=== PATIENT | female | born 1945 | race Caucasian/White ===

== ENCOUNTER 2018-04-14 12:43 | Emergency (ER) | payer OTHER ==
[~2018-04-14] VITALS: Ht 160 cm; Wt 54.0 kg
[2018-04-14 13:13] LABS: ABSOLUTE BASOPHIL COUNT 0 /CUMM (0.0-0.2); ABSOLUTE EOSINOPHIL COUNT 0 /CUMM (0.0-0.7); ABSOLUTE GRANULOCYTE CT 6.5 /CUMM (1.4-6.5); ABSOLUTE LYMPH COUNT 1.1 /CUMM (1.2-3.4); ABSOLUTE MONOCYTE COUNT 1.1 /CUMM (0.10-0.60); BASOPHIL % 0.3 % (0.0-2.0); EOSINOPHIL % 0.2 % (0-5); GRANULOCYTE % 74.3 % (42.2-75.2); HEMATOCRIT 38.9 % (37-47); MEAN CORPUSCULAR HGB 31.7 PG (27.0-31.0); MEAN CORPUSCULAR VOLUME 93.4 FL (81.0-99.0); MEAN PLATELET VOLUME 7.7 FL (7.4-10.4); PLATELET COUNT 260 /CUMM (130-400); RBC DISTRIBUTION WIDTH 12.7 % (11.5-14.5); RED BLOOD CELL CT 4.17 /CUMM (4.20-5.40); WHITE BLOOD CELL COUNT 8.8 /CUMM (4.8-10.8)
--- NOTE | 2018-04-14 13:28 | ED GENERAL ADULT ---
History of Present Illness General Chief Complaint: General Adult Stated Complaint: COUGH X4 DAYS/SOB/GENERAL WEAKNESS Source: patient, family, old records Exam Limitations: no limitations Vital Signs & Intake/Output Vital Signs & Intake/Output Vital Signs Date Time Temp Pulse Resp B/P B/P Pulse O2 O2 Flow FiO2 Mean Ox Delivery Rate 04/14 1452 94 18 161/77 98 Room Air 04/14 1333 Room Air 04/14 1307 95.4 114 22 123/69 95 Room Air Allergies Coded Allergies: MDX - SULFA (sulfonamide) (SULFA (SULFONAMIDE)) (01/11/11) Uncoded Allergies: ?ASPIRIN (01/11/11) Triage Note: C/O CONGESTED COUGH X 4 DAYS, WEAKNESS, POOR APPETITE, SOB, CHEST PRESSURE X 2 DAYS (INTERMITTAANT). ON BLOOD THINNERS FOR PERIPHERAL ARTERY DISEASE. Triage Nurses Notes Reviewed? yes HPI: Patient presents with a four-day history of productive cough, weakness, fatigue and anorexia. Patient states that she is been probably just on the couch since she got home from work on Thursday. Patient states that she's had a few episodes of productive cough with clear sputum. There are no fevers or chills. She is now having sharp chest pain in the right side of her chest that radiates into her back that is only present when she coughs. There is no pain when she is not coughing. She denies any shortness of breath. Patient states she had similar symptoms in the past when she had pneumonia. Past History Travel History Traveled to [place] past 21 day No Medical History Any Pertinent Medical History? see below for history Cardiovascular: hypertension, PVD Respiratory: asthma Surgical History Surgical History: non-contributory Psychosocial History What is your primary language Luxembourgish Tobacco Use: Current Daily Use Daily Tobacco Use Amount/Type: => 5 Cigarettes daily ETOH Use: denies use Illicit Drug Use: denies illicit drug use Family History Hx Contributory? No Review of Systems Review of Systems Constitutional: Reports: see HPI, weakness. EENTM: Reports: no symptoms. Respiratory: Reports: see HPI, cough, sputum production. Cardiovascular: Reports: see HPI, chest pain. GI: Reports: see HPI. Genitourinary: Reports: no symptoms. Musculoskeletal: Reports: no symptoms. Skin: Reports: no symptoms. Neurological/Psychological: Reports: no symptoms. Hematologic/Endocrine: Reports: no symptoms. Immunologic/Allergic: Reports: no symptoms. All Other Systems: Reviewed and Negative Physical Exam Physical Exam General Appearance: well developed/nourished, alert, awake, mild distress Head: atraumatic, normal appearance Eyes: Bilateral: PERRL, EOMI. Ears, Nose, Throat: normal pharynx, normal ENT inspection, hearing grossly normal Neck: normal inspection, supple, full range of motion Respiratory: normal breath sounds, chest non-tender, no respiratory distress, lungs clear Cardiovascular: regular rate/rhythm, normal peripheral pulses Gastrointestinal: normal bowel sounds, soft, non-tender, no organomegaly Back: normal inspection, normal range of motion Extremities: normal inspection, normal capillary refill, normal range of motion, no edema Neurologic/Psych: no motor/sensory deficits, awake, alert, oriented x 3 Skin: intact, normal color, warm/dry Lymphatic: no anterior cervical mohan Core Measures ACS in differential dx? No CVA/TIA Diagnosis: No Sepsis Present: No Sepsis Focused Exam Completed? No Progress Differential Diagnoses I considered the following diagnoses in my evaluation of the patient: [Pneumonia , bronchitis, electrolyte abnormality] Plan of Care: Orders Procedure Date/time Status TROPONIN LEVEL 04/14 1250 Complete COMPREHENSIVE METABOLIC PANEL 04/14 1250 Complete CBC WITHOUT DIFFERENTIAL 04/14 1250 Complete B-TYPE NATRIURETIC PEP (BNP) 04/14 1250 Complete EKG 04/14 1246 Active Laboratory Tests 04/14/18 1305: Anion Gap 12, Estimated GFR > 60, BUN/Creatinine Ratio 8.0, Glucose 143 H, Calcium 9.4, Total Bilirubin 1.1, AST 27, ALT 39, Alkaline Phosphatase 68, Troponin I < 0.01, Hfg-[id number]-[id number] Pept 57.8, Total Protein 7.0, Albumin 4.0, Globulin 3.0, Albumin/Globulin Ratio 1.3, CBC w Diff NO MAN DIFF REQ, RBC 4.17 L, MCV 93.4, MCH 31.7 H, MCHC 34.0, RDW 12.7, MPV 7.7, Gran % 74.3, Lymphocytes % 12.1 L, Monocytes % 13.1 H, Eosinophils % 0.2, Basophils % 0.3, Absolute Granulocytes 6.5, Absolute Lymphocytes 1.1 L, Absolute Monocytes 1.1 H, Absolute Eosinophils 0, Absolute Basophils 0 Diagnostic Imaging: Viewed by Me: Radiology Read. Discussed w/RAD: Radiology Read. CXR Impression: no acute abnormality Initial ED EKG: NSR, nonspecific ST T wave chg Prior EKG: unchanged Departure Departure Disposition: HOME OR SELF CARE Condition: Stable Clinical Impression Primary Impression: Bronchitis Referrals: Froilan Damon MD (PCP/Family) Additional Instructions: DRINK PLENTY OF FLUIDS FOLLOW UP WITH DR. DAMON RETURN IF SYMPTOMS WORSEN OR FOR ANY CONCENRS Departure Forms: Customer Survey General Discharge Information Prescriptions: Current Visit Scripts Albuterol Sulfate (Proair Hfa) 2 PUF INH Q4-6 PRN PRN BRONCHITIS #1 INHAL Amoxicillin 1 CAP PO TID #21 CAP Critical Care Note Critical Care Note Critical Care Time: non-applicable
--- NOTE | 2018-04-14 13:54 | RADIOLOGY REPORT ---
EXAMINATION: XR CHEST CLINICAL INFORMATION: Cough and dyspnea. Assess for pneumonia, effusion congestion. COMPARISON: Chest x-ray 01/11/2011. TECHNIQUE: Frontal and lateral views of the chest were obtained. FINDINGS: The lung lei are hyperexpanded with flattening of the hemidiaphragms and retrosternal air trapping. The findings are consistent with COPD, which is demonstrated on prior imaging. There are coarse interstitial markings in the lungs bilaterally, which appear chronic. The cardiac silhouette is normal. There are no pleural effusions or pneumothorax. The central pulmonary vasculature is normal. There are no acute osseous findings. There are mild spondylitic changes in the thoracic spine. The study redemonstrates calcified lymph nodes projected over the proximal upper limbs on the lateral view. IMPRESSION: 1. The lungs are hyperexpanded, consistent with COPD. 2. There are no acute cardiopulmonary findings.
[2018-04-14 14:52] VITALS: BP 161/77
[2018-04-14] MEDS ORDERED: PROAIR HFA8.5 GM INH (14:54)
[2018-04-14] MEDS ORDERED: AMOXICILLIN250 M3 PO (14:54)
== END 2018-04-14 14:55 ==
LOC: ERH 12:43
PROVIDERS: Physician Assistant
DX: J40 Bronchitis, not specified as acute or chronic (principal); R07.9 Chest pain, unspecified; F17.210 Nicotine dependence, cigarettes, uncomplicated
CPT/HCPCS: 71046; 93005; 93010